=== PATIENT | male | born 2000 | race Caucasian/White ===

== ENCOUNTER 2022-06-23 18:45 | Emergency (ER) | payer MEDICAID, OTHER | END 2022-06-23 20:20 | disposition home or self-care (01) | LOC: JD.ED 18:45 | DX: S82.001A Unspecified fracture of right patella, initial encounter for closed fracture (principal); S86.811A Strain of other muscle(s) and tendon(s) at lower leg level, right leg, initial encounter; S83.91XA Sprain of unspecified site of right knee, initial encounter; F17.210 Nicotine dependence, cigarettes, uncomplicated; X50.1XXA Overexertion from prolonged static or awkward postures, initial encounter | CPT/HCPCS: 73564-26-RT; 73564-RT; 99283; 99284 ==